=== PATIENT | female | born 1990 | race Caucasian/White ===

== ENCOUNTER 2017-02-03 06:59 | Inpatient (IN) | payer BC ==
--- NOTE | 2017-02-03 19:07 | PCM.LDHP ---
L&D History of Present Illness - General Date of Service: 02/03/17 Admit Problem/Dx: Admission Diagnosis/Problem Admission Diagnosis/Problem 02/03/17 18:54 39-3/7 week intrauterine -increased distance from the hospital- elective induction Source of Information: Patient History Limitations: Reports: No Limitations - History of Present Illness Introduction:: Rae is a 26-year-old 4 para 2011 white female who is due on 02/07/2017 and is admitted for elective induction of labor. She was in [facility], is multiparous and has requested an elective induction of labor. Procedure come risks, benefits, alternatives of care including natural onset of labor all discussed in detail patient. She appears to understand, and wishes to proceed. 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 Her last menstrual period for this was 05/03/2016, was relatively certain, using no control time conception. Cycles were q. 28 days, menarche age 13. Positive test was on 2015. Patient had 2 ultrasounds done on 09/24/2016 into 2016 which both supported her LMP dating. Her past medical history includes the followin. Female infant born 10/10/2011 at 40 weeks gestational age after 23 hours of labor-6 lbs. 9 oz.-epidural was used-delivered at [facility]-child's name is Hi 2. Miscarriage 06/26/2012 at 6 weeks gestational age-passed naturally 3. Male born at 07/08/2014 at 40 weeks gestational age after 13 hours of labor-8 lbs. 2 oz.-normal spontaneous vaginal delivery-epidural was used-[facility] in [place]-child's name is David course was concave by packing, there was an echogenic focus in the left ventricle return remained on followup of ultrasound done 10/28/2016 is felt to be an incidental finding. [employer] test was done on 11/18/2016 and was found to be negative. [place] depression screen score on 09/24/2016 was 0. Patient is desiring an epidural in labor and delivery. Group B strep screen was positive. The patient is allergic to amoxicillin which causes itching and a rash and the bacteria is resistant to clindamycin but sensitive to vancomycin. Vancomycin to be used as prophylactic antibiotic in labor and delivery. Patient is Rh- with a negative blood. RhoGAM was administered on 11/18. course started on 07/23/2016 at 11-4/7 weeks gestational age. Patient had regular visits throughout the course of her . Her vital signs remained stable throughout the course of her . Fundal height growth was appropriate. Her weight gain was from 161.4 pounds at her first visit to 200.2 pounds for approximately a 39 pound weight gain. no problems were encountered. Laboratory testing done during the showed blood which is A- with a negative antibody screen at first visit and again at the end of second trimester. Her first platelet count was 206,000. First hemoglobin was 14.1. She is rubella immune. RPR is nonreactive. HIV and hepatitis B assays were negative. GC and Chlamydia were negative. Her second trimester labs showed a hemoglobin of 13.0 g/dL. Platelets are 191,000. One hour GTT was 96. Group B strep screen was positive, patient's allergic to penicillin, bacteria is resistant to clindamycin but sensitive to vancomycin which will be used for prophylaxis in labor and delivery. Allergies: Amoxicillin which causes itching and rash Medications: 1. vitamins daily Past medical history: 1. Vaginal delivery x2 2. Miscarriage x1 Past surgical history: Apparent 1. Tonsillectomy adenoidectomy 2005 2. Cervical cryotherapy 2006. Family history: Brother with asthma. Mother and father are alive and well. 2 brothers are alive and well otherwise. Maternal grandmother is alive and well with heart valve replacement but has diabetes. Maternal grandfather is secondary to an OR in his 50s. Paternal grandmother is alive but with a stroke history of diabetes history. Paternal grandfather is alive and with history of stroke and Alzheimer's. No bleeding, clotting, and seizure problems noted in the family. Social history: Patient is , lives in [facility]. 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 Does not use any significant loss of alcohol, drugs or tobacco Review of systems: HEENT in-negative Cardiovascular-negative Respiratory-negative Breasts-changes associated with only Gastrointestinal-negative. -changes associated with with normal fundal height growth Musculoskeletal-slight edema occasional in Neurologic-negative Physical exam: In general patient is a well-developed, well-nourished pleasant female of stated age in no acute distress. Last blood pressure on 01/29/2007 she 108/78, weight was 200.2, heart rate was 135. Weight at first there was a 161 point or, height is 5 feet 5 inches. Skin is warm and dry. HEENT, neck and back within normal limits Cardiovascular exam shows regular and rhythm without murmurs. Breast exam is deferred having been done at first visit and found to be negative. Abdomen is protuberant with a fundal height of 38 cm, baby in vertex presentation Last cervical exam showed 2 cm dilation, 90% effacement, soft, -2. Extremities and neurological exam-grossly within normal limits. H&P Review of Systems - Review of Systems: Review Of Systems: See Below L&D Exam - Exam Exam: See Below Problem List Initiated/Reviewed/Updated: Yes Assessment/Plan Comment:: Assessment: 1. 39-3/7 week intrauterine , increased distance from hospital, multiparous status, desire for elective induction of labor 2. Group B strep screen positive-allergic to penicillin-bacteria resistant to clindamycin-sensitive to clindamycin which will be used for prophylaxis 3. Patient plans to bottlefeed 4 Rh- status-Will check baby's blood type upon delivery 5. Epidural when necessary per patient desire Plan: 1. Prophylactic vancomycin antibiotic therapy for group B strep presents 2. Pitocin induction of labor followed by artificial rupture membranes after antibiotics have been started 3. Anticipate normal spontaneous vaginal delivery 4. Epidural when necessary 5. CBC.
[2017-02-03] MEDS ORDERED: Ondansetron 4 MG/2 ML SDV IVPUSH PRN (19:09)
[2017-02-03] MEDS ORDERED: Nalbuphine 20 MG/1 ML Amp IVPUSH PRN (19:09)
[2017-02-03] MEDS ORDERED: Sodium Chloride 0.9% 10 ML Syringe FLUSH PRN (19:09)
[2017-02-03] MEDS ORDERED: Lidocaine 1% 50 ML MDV INJECT ONE (19:09)
[2017-02-03] MEDS ORDERED: Oxytocin/Lactated Ringers 10 UNIT/1,000 ML BAG IV SCH (19:15)
[2017-02-03] MEDS ORDERED: ePHEDrine 50 MG/ML SDV IVPUSH PRN (19:44)
[2017-02-03] MEDS ORDERED: diphenhydrAMINE 50 MG/ML SDV IVPUSH PRN (19:44)
[2017-02-03] MEDS ORDERED: fentaNYL 100 MCG/2 ML SDV EPIDUR PRN (19:44)
[2017-02-03] MEDS ORDERED: Bupivacaine/fentaNYL/NS 100 ML Bag EPIDUR SCH (19:45)
--- NOTE | 2017-02-03 19:56 | PCM.PREANE ---
Preanesthetic Assessment - Anesthesia/Transfusion/Family Hx Anesthesia History: Prior Anesthesia Without Reaction ("did have a sore back") Family History of Anesthesia Reaction: No Transfusion History: No Prior Transfusion(s) - Review of Systems General: No Symptoms Pulmonary: No Symptoms Cardiovascular: No Symptoms Gastrointestinal: No symptoms Neurological: No Symptoms Other: Reports: None - Physical Assessment Pulse: 79 O2 Sat by Pulse Oximetry: 100 Respiratory Rate: 14 Blood Pressure: 115/56 Temperature: 36.9 C Height: 1.68 m Weight: 90.582 kg ASA Class: 2 Mental Status: Alert & Oriented x3 Airway Class: Mallampati = 1 Dentition: Reports: Normal Dentition Thyro-Mental Finger Breadths: 3 Mouth Opening Finger Breadths: 3 ROM/Head Extension: Full Lungs: Clear to auscultation, Normal respiratory effort Cardiovascular: Regular Rate, Regular Rhythm, No Murmurs - Lab Values: Laboratory Last Values WBC 11.38 K/mm3 (3.98-10.04) H 02/03/17 19:25 RBC 4.79 M/mm3 (3.98-5.22) 02/03/17 19:25 Hgb 14.0 gm/L (11.2-15.7) 02/03/17 19:25 Hct 41.2 % (34.1-44.9) 02/03/17 19:25 MCV 86.0 fl (79.4-94.8) 02/03/17 19:25 MCH 29.2 pg (25.6-32.2) 02/03/17 19:25 MCHC 34.0 g/dl (32.2-35.5) 02/03/17 19:25 RDW Std Deviation 42.0 fL (36.4-46.3) 02/03/17 19:25 Plt Count 175 K/mm3 (182-369) L 02/03/17 19:25 MPV 10.4 fl (9.4-12.3) 02/03/17 19:25 Neut % (Auto) 69.9 % (34.0-71.1) 02/03/17 19:25 Lymph % (Auto) 24.3 % (19.3-51.7) 02/03/17 19:25 Price % (Auto) 5.1 % (4.7-12.5) 02/03/17 19:25 Eos % (Auto) 0 (0.7-5.8) L 02/03/17 19:25 Baso % (Auto) 0.1 % (0.1-1.2) 02/03/17 19:25 Neut # (Auto) 7.95 K/mm3 (1.56-6.13) H 02/03/17 19:25 Lymph # (Auto) 2.77 K/mm3 (1.18-3.74) 02/03/17 19:25 Price # (Auto) 0.58 K/mm3 (0.24-0.36) H 02/03/17 19:25 Eos # (Auto) 0.00 K/mm3 (0.04-0.36) L 02/03/17 19:25 Baso # (Auto) 0.01 K/mm3 (0.01-0.08) 02/03/17 19:25 - Allergies Allergies/Adverse Reactions: Allergies Allergy/AdvReac Type Severity Reaction Status Date / Time amoxicillin Allergy Hives Verified 02/03/17 19:39 - Anesthesia Plan Pre-Op Medication Ordered: None - Acknowledgements Anesthesia Type Planned: Epidural Pt an Appropriate Candidate for the Planned Anesthesia: Yes Alternatives and Risks of Anesthesia Discussed w Pt/Guardian: Yes Pt/Guardian Understands and Agrees with Anesthesia Plan: Yes PreAnesthesia Questionnaire - HOME MEDS Home Medications: Home Meds Vit #108/Iron/FA [ One Tablet] 1 each PO DAILY 02/03/17 [ History] - CURRENT (IN HOUSE) MEDS Current Meds: Current Medications Diphenhydramine HCl (Benadryl) 25 mg IVPUSH Q6H PRN PRN Reason: Itching Ephedrine Sulfate (Ephedrine Sulfate) 5 mg IVPUSH ASDIRECTED PRN PRN Reason: HYPOTENTSION Fentanyl (Sublimaze) 100 mcg EPIDUR Q3H PRN PRN Reason: PAIN Fentanyl/Bupivacaine HCl (Fentanyl/Bupivacaine/Ns 2 Mcg-0.125% 100 Ml) 100 ml EPIDUR ASDIRECTED DANIA Lactated Ringer's (Ringers, Lactated) 1,000 mls @ 100 mls/hr IV ASDIRECTED DANIA Oxytocin/Lactated Ringer's (Pitocin In Lr 10 Units/1,000 Ml) 10 unit in 1,000 mls @ 12 mls/hr IV TITRATE DANIA; 2 MUNITS/MIN PRN Reason: Protocol Vancomycin HCl 1 gm/ Sodium (Chloride) 250 mls @ 250 mls/hr IV Q12H DANIA Nalbuphine HCl (Nubain) 10 mg IVPUSH Q2H PRN PRN Reason: Pain (moderate 4-6) Ondansetron HCl (Zofran) 4 mg IVPUSH Q4H PRN PRN Reason: Nausea/Vomiting Sodium Chloride (Saline Flush) 10 ml FLUSH ASDIRECTED PRN PRN Reason: Keep Vein Open Discontinued Medications Lidocaine HCl (Xylocaine 1%) 10 ml INJECT ONETIME ONE Stop: 02/03/17 19:10
[2017-02-03] MEDS: Lactated Ringers 1,000 ML IV SCH (19:59)
[2017-02-04] MEDS: Lactated Ringers 1,000 ML IV SCH (03:30)
--- NOTE | 2017-02-04 07:17 | PCM.SN ---
- Free Text/Narrative Note: Rae is a 26-year-old 4 now para 3013 was admitted at 39-3/7 weeks gestational age yesterday for elective induction of labor for distance from hospital. She lives approximately 2-1/2-3 hours away from the hospital. She is multiparous patient has had relatively fast labors in the past. She is admitted and induced with Pitocin. She had group B strep positive status, his allergic to penicillin, group B strep is daycare assistant to clindamycin therefore was given vancomycin for prophylaxis. She had her first dose approximately 12 hours prior to the baby's delivery. The patient had just had an epidural in place and was not fully effective at the time of delivery. Pitocin was induced induced labor and at approximately 0300 hours on 02/05/2016 patient's membranes were ruptured. She went quickly from 4 cm to complete and delivered at 0659 hours. She delivered a 3370 g (7 pounds, 6.9 ounces) female infant with Apgars of 8 and 9 in an occiput anterior position over an intact perineum. The placenta delivered intact in a Schultze presentation. It appeared intact and complete. The cord had 3 vessels. It was discarded per patient request. No sutures were necessary. The patient had approximately 300 cc of blood loss. Patient plans to nurse. Condition: Good.
--- NOTE | 2017-02-04 16:19 | PCM48HPAN ---
Post Anesthesia Note - EVALUATION WITHIN 48HRS OF ANESTHETIC Vital Signs in Normal Range: Yes Patient Participated in Evaluation: Yes Respiratory Function Stable: Yes Airway Patent: Yes Cardiovascular Function Stable: Yes Hydration Status Stable: Yes Pain Control Satisfactory: Yes Nausea and Vomiting Control Satisfactory: Yes Mental Status Recovered: Yes
[2017-02-04] MEDS ORDERED: Witch Hazel Medicated Pads 100/Jar TOP PRN (20:20)
[2017-02-04] MEDS ORDERED: Acetaminophen 325 MG Tab PO PRN (20:20)
[2017-02-04] MEDS ORDERED: Docusate Sodium 100 MG Cap PO PRN (20:20)
[2017-02-04] MEDS ORDERED: Lanolin 100% Cream 7 GM Tube TOP PRN (20:20)
[2017-02-04] MEDS ORDERED: Benzocaine/Menthol 20%-0.5% Spray 56 GM Canister TOP PRN (20:20)
[2017-02-04] MEDS: Ibuprofen 600 MG Tab PO PRN (20:46)
[2017-02-04] MEDS ORDERED: Bupivacaine 0.25% 10 ML SDV ONE (22:22)
--- NOTE | 2017-02-05 06:48 | PCM.SN ---
- Free Text/Narrative Note: Patient has no complaints this morning. Minimal lochia, patient is bottlefeeding. Afebrile, vital signs stable. Abdomen soft, nontender, uterus at umbilicus. Legs-nontender Assessment/plan: 1. day 1. 2. Group B strep status positive-treated with one dose of vancomycin prior to delivery 3. Patient may be discharged anytime she desires. Waiting for pediatrics to decide whether to keep the baby till tomorrow. 4. Hemoglobin today.
[2017-02-05] MEDS: Ibuprofen 600 MG Tab PO PRN (08:52)
[2017-02-05 08:55] VITALS: BP 128/52
--- NOTE | 2017-02-05 10:18 | PCM.DCSUM1 ---
Discharge Summary - Hospital Course Free Text/Narrative:: Rae is a 26-year-old 4 now para 3013 was admitted at 39-3/7 weeks gestational age yesterday for elective induction of labor for distance from hospital. She lives approximately 2-1/2-3 hours away from the hospital. She is multiparous patient has had relatively fast labors in the past. She is admitted and induced with Pitocin. She had group B strep positive status, his allergic to penicillin, group B strep is scheduling assistant to clindamycin therefore was given vancomycin for prophylaxis. She had her first dose approximately 12 hours prior to the baby's delivery. The patient had just had an epidural in place and was not fully effective at the time of delivery. Pitocin was induced induced labor and at approximately 0300 hours on 02/05/2016 patient's membranes were ruptured. She went quickly from 4 cm to complete and delivered at 0659 hours. She delivered a 3370 g (7 pounds, 6.9 ounces) female infant with Apgars of 8 and 9 in an occiput anterior position over an intact perineum. The placenta delivered intact in a Schultze presentation. It appeared intact and complete. The cord had 3 vessels. It was discarded per patient request. No sutures were necessary. The patient had approximately 300 cc of blood loss. Patient plans to nurse. Condition: Good. recovery normal. - Discharge Data Discharge Date: 02/05/17 Discharge Disposition: DC[facility] Condition: Good - Patient Instructions Diet: Regular Diet as Tolerated Activity: As Tolerated (no intercourse or tampons till vaginal bleeding resolves ) Driving: May Drive Today Showering/Bathing: May Shower (May take a bath) Notify Provider of: Fever, Increased Pain, Swelling and Redness, Nausea and/or Vomiting - Discharge Plan Home Medications: Home Meds Vit #108/Iron/FA [ One Tablet] 1 each PO DAILY 02/03/17 [ History] Ibuprofen [IJD: Ibuprofen] 600 mg PO Q4H PRN #30 tablet 02/05/17 [Rx] Patient Handouts: Home Care Instructions for Mom Referrals: Zen Gilmore MD [Primary Care Provider] - (RTC 6 weeks-TFA) - Discharge Summary/Plan Comment DC Time >30 min.: No Discharge Summary/Plan Comment: 1. Regular diet 2. Routine precautions discussed with the patient 3. Meds per home med list 4. RTC 6 weeks-TFA Dx: 39 week IUP-delivered Cond: good - Patient Data Vitals - Most Recent: Last Vital Signs Temp 36.6 C 02/05/17 08:54 Pulse 88 02/05/17 08:54 Resp 16 02/05/17 08:54 BP 128/52 L 02/05/17 08:54 Pulse Ox 98 02/05/17 08:54 Weight - Most Recent: 90.582 kg I&O - Last 24 hours: Intake & Output 02/04/17 02/05/17 02/05/17 22:59 06:59 14:59 Intake Total 0 Balance 0 Lab Results - Last 24 hrs: Laboratory Results - last 24 hr 02/04/17 02/05/17 Range/Units 10:55 06:08 WBC 9.82 (3.98-10.04) K/mm3 RBC 3.96 L (3.98-5.22) M/mm3 Hgb 11.6 (11.2-15.7) gm/L Hct 35.2 (34.1-44.9) % MCV 88.9 (79.4-94.8) fl MCH 29.3 (25.6-32.2) pg MCHC 33.0 (32.2-35.5) g/dl RDW Std Deviation 43.6 (36.4-46.3) fL Plt Count 165 L (182-369) K/mm3 MPV 10.3 (9.4-12.3) fl Blood Type A NEGATIVE Gel Antibody Screen Negative Screen 0 ros/5 flds - neg RhIG Candidate? Yes Rhogam Indicated Yes, baby rh pos H Med Orders - Current: Current Medications Acetaminophen (Tylenol) 650 mg PO Q4H PRN PRN Reason: mild pain or fever Benzocaine/Menthol (Dermoplast Pain Relief [place]) 0 gm TOP ASDIRECTED PRN PRN Reason: Perineal Comfort Measure Docusate Sodium (Colace) 100 mg PO BID PRN PRN Reason: Constipation Emollient Ointment (Lansinoh Hpa) 0 gm TOP ASDIRECTED PRN PRN Reason: Sore Nipples Ibuprofen (Motrin) 600 mg PO Q4H PRN PRN Reason: Mild pain or fever Last Admin: 02/05/17 08:52 Dose: 600 mg Witch Chapis (Tucks) 1 pad TOP ASDIRECTED PRN PRN Reason: Hemorrhoid pain Discontinued Medications Bupivacaine HCl (Sensorcaine-Mpf 0.25%) 10 ml .ROUTE .STK-MED ONE Stop: 02/04/17 22:23 Diphenhydramine HCl (Benadryl) 25 mg IVPUSH Q6H PRN PRN Reason: Itching Ephedrine Sulfate (Ephedrine Sulfate) 5 mg IVPUSH ASDIRECTED PRN PRN Reason: HYPOTENTSION Fentanyl (Sublimaze) 100 mcg EPIDUR Q3H PRN PRN Reason: PAIN Fentanyl/Bupivacaine HCl (Fentanyl/Bupivacaine/Ns 2 Mcg-0.125% 100 Ml) 100 ml EPIDUR ASDIRECTED DANIA Lactated Ringer's (Ringers, Lactated) 1,000 mls @ 100 mls/hr IV ASDIRECTED DANIA Last Admin: 02/04/17 03:30 Dose: 100 mls/hr Oxytocin/Lactated Ringer's (Pitocin In Lr 10 Units/1,000 Ml) 10 unit in 1,000 mls @ 12 mls/hr IV TITRATE DANIA; 2 MUNITS/MIN PRN Reason: Protocol Last Titration: 02/04/17 06:29 Dose: 8 munits/min, 48 mls/hr Vancomycin HCl 1 gm/ Sodium (Chloride) 250 mls @ 250 mls/hr IV Q12H DANIA Last Admin: 02/04/17 09:51 Dose: Not Given Lidocaine HCl (Xylocaine 1%) 10 ml INJECT ONETIME ONE Stop: 02/03/17 19:10 Last Admin: 02/04/17 09:52 Dose: Not Given Nalbuphine HCl (Nubain) 10 mg IVPUSH Q2H PRN PRN Reason: Pain (moderate 4-6) Ondansetron HCl (Zofran) 4 mg IVPUSH Q4H PRN PRN Reason: Nausea/Vomiting Sodium Chloride (Saline Flush) 10 ml FLUSH ASDIRECTED PRN PRN Reason: Keep Vein Open *Q Meaningful Use (DIS) - VTE *Q VTE Criteria *Q: - Stroke *Q Stroke Criteria *Q: - AMI *Q AMI Criteria *Q:
== END 2017-02-05 10:33 | disposition designated cancer center or children's hospital (05) | DRG 560 ==
LOC: JD.OB 06:59 → OBSVTOIN 02-04 06:59 → JD.OB 02-04 10:05
PROVIDERS: ADMIT Obstetrics & Gynecology; ATTEND Obstetrics & Gynecology
PROC: 10E0XZZ Delivery of Products of Conception, External Approach (ICD-10-PCS; principal; 2017-02-04)
PROC: 3E033VJ Introduction of Other Hormone into Peripheral Vein, Percutaneous Approach (ICD-10-PCS; 2017-02-04)
PROC: 10907ZC Drainage of Amniotic Fluid, Therapeutic from Products of Conception, Via Natural or Artificial Opening (ICD-10-PCS; 2017-02-04)
PROC: 00HU33Z Insertion of Infusion Device into Spinal Canal, Percutaneous Approach (ICD-10-PCS; 2017-02-04)
PROC: 3E0R3CZ (ICD-10-PCS; 2017-02-04)
DX: O99.824 Streptococcus B carrier state complicating childbirth (principal); O69.81X0 Labor and delivery complicated by cord around neck, without compression, not applicable or unspecified; Z3A.40 40 weeks gestation of pregnancy; Z37.0 Single live birth; Z88.0 Allergy status to penicillin
CPT/HCPCS: 01967; 36415; 85025; 85027; 85461; 86850; 86900; 86901; A9270-GY; J2590; J2790; J3370; J7050; J7120

== ENCOUNTER 2020-04-19 12:34 | Inpatient (IN) | payer BC ==
[2020-04-19] MEDS ORDERED: Calcium Carbonate 500 MG Tab.Chew PO PRN (13:20)
[2020-04-19] MEDS ORDERED: Nalbuphine 10 MG/ML Syringe IVPUSH PRN (13:20)
[2020-04-19] MEDS ORDERED: Ondansetron 4 MG/2 ML SDV IVPUSH PRN ×2 (13:20→17:25)
[2020-04-19] MEDS ORDERED: Sodium Chloride 0.9% 10 ML Syringe FLUSH PRN (13:20)
[2020-04-19] MEDS ORDERED: Oxytocin/Lactated Ringers 20 UNIT/1,000 ML BAG ONE (13:29)
[2020-04-19] MEDS ORDERED: Oxytocin/Lactated Ringers 10 UNIT/1,000 ML BAG IV SCH ×2 (13:30)
[2020-04-19] MEDS: Lactated Ringers 1,000 ML IV SCH ×2 (13:36→17:23)
--- NOTE | 2020-04-19 13:45 | PCM.LDHP ---
<LuciusKathy R - Last Filed: 04/19/20 16:49> L&D History of Present Illness - General Date of Service: 04/19/20 Admit Problem/Dx: Admission Diagnosis/Problem Admission Diagnosis/Problem Source of Information: Patient History Limitations: Reports: No Limitations - History of Present Illness Introduction:: Rae is a 29-year-old white female at 39-3/7 weeks' gestational age with an BOB of 04/23/2021 who presents to labor and delivery for induction of labor on the afternoon of 04/19/2020. Cervical examination revealed 2 cm dilated, 80% effacement, -3 station, mid-position. Patient to be started on Pitocin and monitored throughout the day. Group B strep was positive, so antibiotics will also be started. She is allergic to amoxicillin. Sensitivities showed resistance to clindamycin, so vancomycin will be used. heart tones are reassuring. There is moderate variability with good accelerations, no decelerations. Patient experiencing mild contractions every 7-10 minutes. 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 LMP was 07/18/2019. Menses occurred every 28 days, and she was not using control at the time of conception. Gynecologic history includes abnormal Pap in 2006 followed by cryotherapy. Obstetric history includes prior placenta previa that resolved by delivery. 4 previous outcomes: 10/10/2010 - 6 lbs. 9 oz. baby girl named WirtKAYCEE at 40 weeks, 23 hour labor; 06/26/2012 - 6 week gestational age fetus resulted in spontaneous ; 07/08/2013 - 8 lbs. 2 oz baby boy named KAYCEE Hernandez at 40 weeks, 13 hour labor; 02/04/2017 - 7 lbs. 6 oz. baby girl named KAYCEE Arriola at 39-4/7, 12 hour labor. history: LMP was 07/17/2019 with regular cycles. BOB of [birth year]/2020 supported by early ultrasound at 11-4/7 weeks' gestational age on 10/08/2019. Subsequent ultrasounds were ordered to evaluate size of fetus. On 12/13/2019, ultrasound revealed intrauterine growth restriction with growth lagging at 5th percentile. Cervix was adequate at 6.0 cm. Repeat ultrasound on 01/17/2020 continued to show lagging growth at 7th percentile. On 02/15/2020, ultrasound showed a jump in growth to 14th percentile. The last ultrasound was conducted on 04/04/2020 and showed cephalic presentation with growth at the 19th percentile. Weight gain for this increased from 168.0 lbs to 202.0 lbs for a total weight gain of 34.0 lbs. Despite IUGR evidenced by ultrasound, fundal height was fairly consistent with gestational age throughout . She plans to bottle feed after delivery. Risk factors for this : early IUGR, Rh negative mom, GBS positive, long distance from hospital center Labs: Blood type is A negative with negative antibody screen. RhoGAM given on 01/17/2020. Initial labs showed hemoglobin of 13.3 g/dL and platelets of 230,000. Rubella immune. RPR nonreactive. GC negative. Hepatitis B surface antigen and HIV were negative. 1 hour GTT was positive at 141. 3 hour GTT was negative: fasting - 68, 1 hour - 137, 2 hour - 150, 3 hour - 147. Second trimester labs showed hemoglobin of 12.5 g/dL and platelets of 208,000. GBS was positive. Past medical history: 1. Abnormal pap with cryotherapy - 2005 2. Early placenta previa with resolution prior to delivery Past surgical history: 1. Tonsillectomy and adenoidectomy - 2006 Allergies: 1. Amoxicillin - causes rash Current medications: 1. vitamin 1 tab PO daily Family history: Mother and father alive and well. Two brothers, 1 with asthma, otherwise healthy. Maternal grandmother is secondary to heart and liver failure. She also had a history of diabetes. Maternal grandfather is secondary to an MN in his 50's. Paternal grandmother is alive and has a history of cerebrovascular accident. Paternal grandfather is alive and has a history of cerebrovascular disease and Alzheimer's. No family history of bleeeding/blotting disorders, anesthesia-related problems, or problems. Social history: Rae is to Eric Clarke. 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 She and her live in [place], [place]. No tobacco, alcohol, or illicit substance use during . - Related Data Allergies/Adverse Reactions: Allergies Allergy/AdvReac Type Severity Reaction Status Date / Time amoxicillin Allergy Severe Hives Verified 04/19/20 13:20 Home Medications: Home Meds Mv-Mn/Iron/FA/Herbal/Digestive [ One Tablet] 1 each PO DAILY 02/03/17 [History] Past Medical History HEENT History: Reports: None BRAZE OPERATOR History: Reports: , Spontaneous - Past Surgical History HEENT Surgical History: Reports: Tonsillectomy Other HEENT Surgeries/Procedures: 2006 Female Surgical History: Reports: Cervical Cryotherapy Social & Family History - Family History Family Medical History: Noncontributory - Caffeine Use Caffeine Use: Reports: Soda Other Caffeine Use: 1 daily H&P Review of Systems - Review of Systems: Review Of Systems: Comprehensive ROS is negative, except as noted in HPI. L&D Exam - Vital Signs Weight: 91.626 kg - OB Specific Contraction Intensity: Mild Movement: Active Heart Tones: Present Heart Rate (FHR) Variability: Moderate (6-25 bmp) Presentation: Vertex - Prasad Score Prasad Score Cervix Position: Midposition Prasad Score Consistency: Soft Prasad Score Effacement: >80% Prasad Score Dilation: 1-2 cm Prasad Score Infant's Station: -3 Prasad Score Total: 7 - Exam General: Alert, Oriented HEENT: Conjunctiva Clear, EOMI, Mucosa Moist & [place], Posterior Pharynx Clear Neck: Supple, Trachea Midline Lungs: Clear to Auscultation, Normal Respiratory Effort Cardiovascular: Regular Rate, Regular Rhythm GI/Abdominal Exam: Other (Gravid abdomen) Genitourinary: Other Back Exam: Normal Inspection. No: Paraspinal Tenderness Extremities: Normal Inspection, No Pedal Edema, Normal Capillary Refill Skin: Warm, Dry, Intact - Patient Data Result Diagrams: 04/19/20 13:35 Orders Last 24hrs: Active Orders 24 hr Category Date Time Status Activity as Tolerated [RC] PFP Care 04/19/20 13:21 Active Communication Order [RC] ASDIRECTED Care 04/19/20 13:21 Active Heart Tones [RC] ASDIRECTED Care 04/19/20 13:21 Active Notify Provider [RC] PFP Care 04/19/20 13:21 Active Notify Provider [RC] PRN Care 04/19/20 13:21 Active Peripheral IV Care [RC] . DIRECTED Care 04/19/20 13:21 Active Vital Signs [RC] PER UNIT ROUTINE Care 08/05/20 13:21 Active Regular Diet [DIET] Diet 04/19/20 Dinner Active BLOOD BANK HOLD SPECIMEN [BBK] Stat Lab 04/19/20 13:20 Ordered CBC WITH AUTO DIFF [HEME] Stat Lab 04/19/20 13:20 Ordered RAPID PLASMA REAGIN,RPR [CHEM] Stat Lab 04/19/20 13:20 Ordered Calcium Carbonate [Tums] Med 04/19/20 13:20 Ordered 1,000 mg PO Q2H PRN Lactated Ringers [Ringers, Lactated] 1,000 ml Med 04/19/20 13:30 Ordered IV ASDIRECTED Nalbuphine [Nubain] Med 04/19/20 13:20 Ordered 10 mg IVPUSH Q2H PRN Ondansetron [Zofran] Med 04/19/20 13:20 Ordered 4 mg IVPUSH Q4H PRN Oxytocin/Lactated Ringers [Pitocin in LR 10 Units/1,000 Med 04/19/20 13:30 Ordered ML] 10 unit in 1,000 ml IV .CONTINUOUS Oxytocin/Lactated Ringers [Pitocin in LR 10 Units/1,000 Med 04/19/20 13:30 Ordered ML] 10 unit in 1,000 ml IV TITRATE Sodium Chloride 0.9% [Saline Flush] Med 04/19/20 13:20 Ordered 10 ml FLUSH ASDIRECTED PRN Vancomycin [Vancocin] 1 gm Med 04/19/20 21:00 Ordered Sodium Chloride 0.9% [Normal Saline (AdvBag)] 250 ml IV Q12HR Electronic Heart Tones Ext w TOCO [WOMSER] Oth 04/19/20 13:21 Ordered Routine Electronic Heart Tones Internal [WOMSER] Per Unit Oth 04/19/20 13:21 Ordered Routine Peripheral IV Insertion Adult [OM.PC] Routine Oth 04/19/20 13:21 Ordered Resuscitation Status Routine Resus Stat 04/19/20 13:20 Ordered Medication Orders Calcium Carbonate/Glycine (Tums) 1,000 mg PO Q2H PRN PRN Reason: Indigestion Vancomycin HCl 1 gm/ Sodium (Chloride) 250 mls @ 167 mls/hr IV Q12H DANIA Oxytocin/Lactated Ringer's (Pitocin In Lr 10 Units/1,000 Ml) 10 unit in 1,000 mls @ 12 mls/hr IV TITRATE DANIA; Protocol Oxytocin/Lactated Ringer's (Pitocin In Lr 10 Units/1,000 Ml) 10 unit in 1,000 mls @ 100 mls/hr IV .CONTINUOUS DANIA Lactated Ringer's (Ringers, Lactated) 1,000 mls @ 100 mls/hr IV ASDIRECTED DANIA Nalbuphine HCl (Nubain) 10 mg IVPUSH Q2H PRN PRN Reason: Pain Ondansetron HCl (Zofran) 4 mg IVPUSH Q4H PRN PRN Reason: Nausea/Vomiting Sodium Chloride (Saline Flush) 10 ml FLUSH ASDIRECTED PRN PRN Reason: Keep Vein Open Assessment/Plan Comment:: Assessment: 1. Rae is a 29-year-old white female at 39-3/7 weeks' gestational age with an BOB of 04/23/2021 who presents to labor and delivery for induction of labor. 2. Risk factors for : early IUGR, Rh negative mom, GBS positive, long distance from hospital center 3. GBS positive. 4. Rubella immune. 5. RPR nonreactive. 6. Patient desires epidural as labor progresses. Plan: 1. Induction with Pitocin is discussed, including risks and benefits. Patient voices understanding and wishes to proceed. 2. Vancomycin 1 g IV Q12H for GBS positive status. 3. Regular diet. 4. Routine labor care. 5. RPR and CBC upon admission. 5. Epidural if patient so desires. 6. Anticipate normal spontaneous vaginal delivery. <Zen Gilmore F - Last Filed: 04/19/20 18:14> L&D History of Present Illness - General Admit Problem/Dx: Admission Diagnosis/Problem Admission Diagnosis/Problem Normal H&P Review of Systems - Review of Systems: Review Of Systems: See Below L&D Exam - Exam Exam: See Below - Vital Signs Vital Signs: Last Vital Signs Temp 36.6 C 04/19/20 13:21 Pulse 74 04/19/20 13:21 Resp 18 04/19/20 13:21 BP 143/76 H 04/19/20 13:21 Pulse Ox 98 04/19/20 13:21 - Patient Data Lab Results Last 24 hrs: Laboratory Results - last 24 hr 04/19/20 04/19/20 Range/Units 13:35 13:45 WBC 10.26 H (3.98-10.04) K/mm3 RBC 4.48 (3.98-5.22) M/mm3 Hgb 13.1 (11.2-15.7) gm/dl Hct 39.1 (34.1-44.9) % MCV 87.3 D (79.4-94.8) fl MCH 29.2 (25.6-32.2) pg MCHC 33.5 (32.2-35.5) g/dl RDW Std Deviation 43.8 (36.4-46.3) fL Plt Count 185 (182-369) K/mm3 MPV 10.5 (9.4-12.3) fl Neut % (Auto) 68.1 (34.0-71.1) % Lymph % (Auto) 23.8 (19.3-51.7) % [place] % (Auto) 7.7 (4.7-12.5) % Eos % (Auto) 0 L (0.7-5.8) Baso % (Auto) 0.1 (0.1-1.2) % Neut # (Auto) 6.99 H (1.56-6.13) K/mm3 Lymph # (Auto) 2.44 (1.18-3.74) K/mm3 [place] # (Auto) 0.79 H (0.24-0.36) K/mm3 Eos # (Auto) 0.00 L (0.04-0.36) K/mm3 Baso # (Auto) 0.01 (0.01-0.08) K/mm3 COVID-19 (SLICK) Negative (NEGATIVE) Result Diagrams: 04/19/20 13:35 Problem List Initiated/Reviewed/Updated: Yes Orders Last 24hrs: Active Orders 24 hr Category Date Time Status Patient Status Manage Transfer [TRANSFER] Routine ADT 04/19/20 18:00 Ordered Activity as Tolerated [RC] PFP Care 04/19/20 13:21 Active Communication Order [RC] ASDIRECTED Care 04/19/20 13:21 Active Notify Provider [RC] ASDIRECTED Care 04/19/20 17:24 Active Notify Provider [RC] PFP Care 04/19/20 13:21 Active Notify Provider [RC] PRN Care 04/19/20 13:21 Active Oxygen Therapy [RC] ASDIRECTED Care 04/19/20 17:24 Active Peripheral IV Care [RC] . DIRECTED Care 04/19/20 13:21 Active Pulse Oximetry [RC] ASDIRECTED Care 04/19/20 17:24 Active Vital Signs [RC] PER UNIT ROUTINE Care 04/19/20 13:21 Active Regular Diet [DIET] Diet 04/19/20 Dinner Active BLOOD BANK HOLD SPECIMEN [BBK] Stat Lab 04/19/20 13:20 Ordered RAPID PLASMA REAGIN,RPR [CHEM] Stat Lab 04/19/20 13:35 Received Bupivacaine/fentaNYL/NS [fentaNYL/Bupivacaine/NS 2 MCG- Med 04/19/20 17:30 Active 0.125% 100 ML] 100 ml EPIDUR ASDIRECTED Calcium Carbonate [Tums] Med 04/19/20 13:20 Active 1,000 mg PO Q2H PRN Lactated Ringers [Ringers, Lactated] 1,000 ml Med 04/19/20 13:30 Active IV ASDIRECTED Nalbuphine [Nubain] Med 04/19/20 13:20 Active 10 mg IVPUSH Q2H PRN Ondansetron [Zofran] Med 04/19/20 17:25 Active 4 mg IVPUSH ONETIME PRN Ondansetron [Zofran] Med 04/19/20 13:20 Active 4 mg IVPUSH Q4H PRN Oxytocin/Lactated Ringers [Pitocin in LR 10 Units/1,000 Med 04/19/20 13:30 Active ML] 10 unit in 1,000 ml IV .CONTINUOUS Oxytocin/Lactated Ringers [Pitocin in LR 10 Units/1,000 Med 04/19/20 13:30 Active ML] 10 unit in 1,000 ml IV TITRATE Phenylephrine [Sebastian-Synephrine] 1 mg Med 04/19/20 17:30 Active Sodium Chloride 0.9% [Normal Saline] 10 ml IV TITRATE Sodium Chloride 0.9% [Saline Flush] Med 04/19/20 13:20 Active 10 ml FLUSH ASDIRECTED PRN Vancomycin [Vancocin] 1 gm Med 04/19/20 14:00 Active Sodium Chloride 0.9% [Normal Saline (AdvBag)] 250 ml IV Q12H ePHEDrine [ePHEDrine sulfate] Med 04/19/20 17:25 Active 5 mg IVPUSH ASDIRECTED PRN fentaNYL [Sublimaze] Med 04/19/20 17:25 Active 100 mcg EPIDUR Q3H PRN Electronic Heart Tones Ext w TOCO [WOMSER] Oth 04/19/20 13:21 Ordered Routine Electronic Heart Tones Internal [WOMSER] Per Unit Oth 04/19/20 13:21 Ordered Routine Peripheral IV Insertion Adult [OM.PC] Routine Oth 04/19/20 13:21 Ordered Resuscitation Status Routine Resus Stat 04/19/20 13:20 Ordered Medication Orders Calcium Carbonate/Glycine (Tums) 1,000 mg PO Q2H PRN PRN Reason: Indigestion Ephedrine Sulfate (Ephedrine Sulfate) 5 mg IVPUSH ASDIRECTED PRN PRN Reason: Hypotension Fentanyl (Sublimaze) 100 mcg EPIDUR Q3H PRN PRN Reason: Pain Last Admin: 04/19/20 17:29 Dose: 100 mcg Documented by: RAQUEL Fentanyl/Bupivacaine HCl (Fentanyl/Bupivacaine/Ns 2 Mcg-0.125% 100 Ml) 100 ml EPIDUR ASDIRECTED DANIA Vancomycin HCl 1 gm/ Sodium (Chloride) 250 mls @ 167 mls/hr IV Q12H DANIA Last Admin: 04/19/20 13:38 Dose: 167 mls/hr Documented by: RAQUEL Oxytocin/Lactated Ringer's (Pitocin In Lr 10 Units/1,000 Ml) 10 unit in 1,000 mls @ 12 mls/hr IV TITRATE DANIA; Protocol Last Titration: 04/19/20 15:49 Dose: 8 munits/min, 48 mls/hr Documented by: Titration: 04/19/20 15:02 Dose: 6 munits/min, 36 mls/hr Documented by: Titration: 04/19/20 14:30 Dose: 4 munits/min, 24 mls/hr Documented by: Admin: 04/19/20 13:37 Dose: 2 munits/min, 12 mls/hr Documented by: RAQUEL Oxytocin/Lactated Ringer's (Pitocin In Lr 10 Units/1,000 Ml) 10 unit in 1,000 mls @ 100 mls/hr IV .CONTINUOUS DANIA Lactated Ringer's (Ringers, Lactated) 1,000 mls @ 100 mls/hr IV ASDIRECTED DANIA Last Admin: 04/19/20 17:23 Dose: 100 mls/hr Documented by: Infusion: 04/19/20 17:23 Dose: 100 mls/hr Documented by: Admin: 04/19/20 13:36 Dose: 100 mls/hr Documented by: RAQUEL Phenylephrine HCl 1 mg/ Sodium (Chloride) 10.1 mls @ 3,636 mls/hr IV TITRATE DANIA; Protocol Nalbuphine HCl (Nubain) 10 mg IVPUSH Q2H PRN PRN Reason: Pain Ondansetron HCl (Zofran) 4 mg IVPUSH Q4H PRN PRN Reason: Nausea/Vomiting Ondansetron HCl (Zofran) 4 mg IVPUSH ONETIME PRN PRN Reason: Nausea/Vomiting Sodium Chloride (Saline Flush) 10 ml FLUSH ASDIRECTED PRN PRN Reason: Keep Vein Open
[2020-04-19] MEDS ORDERED: ePHEDrine 50 MG/ML SDV IVPUSH PRN (17:25)
[2020-04-19] MEDS ORDERED: fentaNYL 100 MCG/2 ML SDV EPIDUR PRN (17:25)
--- NOTE | 2020-04-19 17:26 | PCM.PREANE ---
Preanesthetic Assessment - Procedure Proposed Procedure: Epidural - Anesthesia/Transfusion/Family Hx Anesthesia History: Prior Anesthesia Without Reaction Family History of Anesthesia Reaction: No Transfusion History: No Prior Transfusion(s) Intubation History: Unknown - Review of Systems General: No Symptoms Pulmonary: No Symptoms Cardiovascular: No Symptoms Gastrointestinal: No Symptoms Neurological: No Symptoms Other: Reports: None - Physical Assessment NPO Status Date: 04/19/20 NPO Status Time: 09:00 Vital Signs: Last Vital Signs Temp 36.6 C 04/19/20 13:21 Pulse 74 04/19/20 13:21 Resp 18 04/19/20 13:21 BP 143/76 H 04/19/20 13:21 Pulse Ox 98 04/19/20 13:21 Height: 1.65 m Weight: 91.626 kg ASA Class: 2 Mental Status: Alert & Oriented x3 Airway Class: Mallampati = 2 Dentition: Reports: Normal Dentition, Caries Thyro-Mental Finger Breadths: 3 Mouth Opening Finger Breadths: 3 ROM/Head Extension: Full Lungs: Clear to Auscultation, Normal Respiratory Effort Cardiovascular: Regular Rate, Regular Rhythm, No Murmurs - Lab Values: Laboratory Last Values WBC 10.26 K/mm3 (3.98-10.04) H 04/19/20 13:35 RBC 4.48 M/mm3 (3.98-5.22) 04/19/20 13:35 Hgb 13.1 gm/dl (11.2-15.7) 04/19/20 13:35 Hct 39.1 % (34.1-44.9) 04/19/20 13:35 MCV 87.3 fl (79.4-94.8) D 04/19/20 13:35 MCH 29.2 pg (25.6-32.2) 04/19/20 13:35 MCHC 33.5 g/dl (32.2-35.5) 04/19/20 13:35 RDW Std Deviation 43.8 fL (36.4-46.3) 04/19/20 13:35 Plt Count 185 K/mm3 (182-369) 04/19/20 13:35 MPV 10.5 fl (9.4-12.3) 04/19/20 13:35 Neut % (Auto) 68.1 % (34.0-71.1) 04/19/20 13:35 Lymph % (Auto) 23.8 % (19.3-51.7) 04/19/20 13:35 [place] % (Auto) 7.7 % (4.7-12.5) 04/19/20 13:35 Eos % (Auto) 0 (0.7-5.8) L 04/19/20 13:35 Baso % (Auto) 0.1 % (0.1-1.2) 04/19/20 13:35 Neut # (Auto) 6.99 K/mm3 (1.56-6.13) H 04/19/20 13:35 Lymph # (Auto) 2.44 K/mm3 (1.18-3.74) 04/19/20 13:35 [place] # (Auto) 0.79 K/mm3 (0.24-0.36) H 04/19/20 13:35 Eos # (Auto) 0.00 K/mm3 (0.04-0.36) L 04/19/20 13:35 Baso # (Auto) 0.01 K/mm3 (0.01-0.08) 04/19/20 13:35 COVID-19 (SLICK) Negative (NEGATIVE) 04/19/20 13:45 Above labs reviewed and noted and within acceptable ranges to proceed with epidural. 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: , 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 - Past Surgical History HEENT Surgical History: Reports: Tonsillectomy Other HEENT Surgeries/Procedures: 2006 Female Surgical History: Reports: Cervical Cryotherapy - SUBSTANCE USE Smoking Status *Q: Never Smoker Tobacco Use Within Last Twelve Months: No Second Hand Smoke Exposure: No Recreational Drug Use History: No - HOME MEDS Home Medications: Home Meds Mv-Mn/Iron/FA/Herbal/Digestive [ One Tablet] 1 each PO DAILY 02/03/17 [History] - CURRENT (IN HOUSE) MEDS Current Meds: Current Medications Calcium Carbonate/Glycine (Tums) 1,000 mg PO Q2H PRN PRN Reason: Indigestion Vancomycin HCl 1 gm/ Sodium (Chloride) 250 mls @ 167 mls/hr IV Q12H DANIA Last Admin: 04/19/20 13:38 Dose: 167 mls/hr Documented by: Oxytocin/Lactated Ringer's (Pitocin In Lr 10 Units/1,000 Ml) 10 unit in 1,000 mls @ 12 mls/hr IV TITRATE DANIA; Protocol Last Titration: 04/19/20 15:49 Dose: 8 munits/min, 48 mls/hr Documented by: Oxytocin/Lactated Ringer's (Pitocin In Lr 10 Units/1,000 Ml) 10 unit in 1,000 mls @ 100 mls/hr IV .CONTINUOUS DANIA Lactated Ringer's (Ringers, Lactated) 1,000 mls @ 100 mls/hr IV ASDIRECTED DANIA Last Admin: 04/19/20 17:23 Dose: 100 mls/hr Documented by: Nalbuphine HCl (Nubain) 10 mg IVPUSH Q2H PRN PRN Reason: Pain Ondansetron HCl (Zofran) 4 mg IVPUSH Q4H PRN PRN Reason: Nausea/Vomiting Sodium Chloride (Saline Flush) 10 ml FLUSH ASDIRECTED PRN PRN Reason: Keep Vein Open Discontinued Medications Oxytocin/Lactated Ringer's (Pitocin In Lr 20 Units/1,000 Ml) Confirm Administered Dose 20 unit in 1,000 mls @ as directed .ROUTE .STK-MED ONE Stop: 04/19/20 13:30
[2020-04-19] MEDS ORDERED: fentaNYL 100 MCG/2 ML SDV ONE (17:28)
[2020-04-19] MEDS ORDERED: Phenylephrine 1 MG in Sodium Chloride 0.9% 10 ML IV SCH (17:30)
[2020-04-19] MEDS ORDERED: Bupivacaine/fentaNYL/NS 100 ML Bag EPIDUR SCH (17:30)
--- NOTE | 2020-04-19 18:12 | PCM.SN.2 ---
- Free Text/Narrative Note: Delivery note: Rae is a 29-year-old white female at 39-3/7 weeks' gestational age with an BOB of 04/23/2021 who presents to labor and delivery for induction of labor on the afternoon of 04/19/2020. Underwent Pitocin induction of labor. Pitocin was started approximately 1315 hrs. on 04/19/2020. The patient progressed rapidly in labor and at 1733 she achieved complete cervical lesion. She pushed approximately 3 contractions and delivered a viable, villegas, female infant with Apgars of 8 and 9, weight of 3120 g (6 pounds 14 ounces), a length of 20.5 inches in a direct occiput anterior position. There was moderate meconium- stained amniotic fluid. heart tones were generally reassuring with some variable decelerations just prior to delivery. She delivered over an intact perineum. Baby was placed on mom's abdomen, cord was clamped x2 and cut by the baby's father Eric. The baby was taken to the warmer for evaluation because of the meconium stained amniotic fluid. Pitocin was creased to 500 cc/h per protocol to facilitate increase in uterine tone and decreased likelihood of bleeding. Cord blood was obtained. The umbilical cord had 3 vessels within it. The placenta delivered in a [place] mentation, appeared intact and complete and was discarded per patient desire. The placenta was stained secondary to meconium. There was approximately 300 cc blood loss. Patient plans to bottle- feed. Condition: Good
[2020-04-19] MEDS ORDERED: Docusate Sodium 100 MG Cap PO PRN (19:09)
[2020-04-19] MEDS ORDERED: Ibuprofen 600 MG Tab PO PRN (19:09)
[2020-04-19] MEDS ORDERED: Acetaminophen 325 MG Tab PO PRN (19:09)
[2020-04-19] MEDS ORDERED: Benzocaine/Menthol 20%-0.5% Spray 56 GM Canister TOP PRN (19:09)
[2020-04-19] MEDS ORDERED: Witch Hazel Medicated Pads 40/Jar TOP PRN (19:09)
--- NOTE | 2020-04-20 06:51 | PCM.DCSUM1 ---
Discharge Summary - Hospital Course Free Text/Narrative:: Rae is a 29-year-old white female at 39-3/7 weeks' gestational age with an BOB of 04/23/2021 who presents to labor and delivery for induction of labor on the afternoon of 04/19/2020. Underwent Pitocin induction of labor. Pitocin was started approximately 1315 hrs. on 04/19/2020. The patient progressed rapidly in labor and at 1733 she achieved complete cervical lesion. She pushed approximately 3 contractions and delivered a viable, villegas, female infant with Apgars of 8 and 9, weight of 3120 g (6 pounds 14 ounces), a length of 20.5 inches in a direct occiput anterior position. There was moderate meconium- stained amniotic fluid. heart tones were generally reassuring with some variable decelerations just prior to delivery. She delivered over an intact perineum. Baby was placed on mom's abdomen, cord was clamped x2 and cut by the baby's father Eric. The baby was taken to the warmer for evaluation because of the meconium stained amniotic fluid. Pitocin was creased to 500 cc/h per protocol to facilitate increase in uterine tone and decreased likelihood of bleeding. Cord blood was obtained. The umbilical cord had 3 vessels within it. The placenta delivered in a Cagle mentation, appeared intact and complete and was discarded per patient desire. The placenta was stained secondary to meconium. There was approximately 300 cc blood loss. Patient plans to bottle- feed. He was noted on exam to have a defect involving the anus in relationship to the perineum and baby was transferred to [facility] in [place], [place]. Patient desiring discharge so she can be with the baby. Condition: Good Diagnosis: Stroke: No - Discharge Data Discharge Date: 04/20/20 Discharge Disposition: Home, Self-Care 01 Condition: Good - Referral to Home Health Primary Care Physician: Zen Gilmore MD - Patient Instructions Diet: Regular Diet as Tolerated Activity: As Tolerated (No intercourse or tampons until bleeding resolves) Driving: May Drive Today Showering/Bathing: May Shower Showering/Bathing, Other: May take a bath Notify Provider of: Fever - Discharge Plan Home Medications: Home Meds Mv-Mn/Iron/FA/Herbal/Digestive [ One Tablet] 1 each PO DAILY 02/03/17 [History] Acetaminophen [Tylenol] 650 mg PO Q4H PRN tablet 04/20/20 [Rx] Ibuprofen [Motrin] 600 mg PO Q4H PRN tablet 04/20/20 [Rx] Referrals: Zen Gilmore MD [Primary Care Provider] - (Return to clinicDr. Gilmore2 to 4 weeks.) - Discharge Summary/Plan Comment DC Time >30 min.: No Discharge Summary/Plan Comment: Discharge instructions: 1. Discharge home 2. Diet, activity and follow-up discussed with patient. 3. Precautions given concern increased pain, bleeding, temperature, signs/symptoms of DVT/PE. 4. Medications per home medication was printed, discussed with and given to the patient. 5. Return to clinic-Dr. Gilmore--Patricia in 2 weeks. Diagnosis: Term -delivered Condition: Good - Patient Data Vitals - Most Recent: Last Vital Signs Temp 36.7 C 04/20/20 02:54 Pulse 68 04/20/20 02:54 Resp 16 04/20/20 02:54 BP 123/66 04/20/20 02:54 Pulse Ox 100 04/20/20 02:54 Weight - Most Recent: 91.626 kg I&O - Last 24 hours: Intake & Output 04/19/20 04/19/20 04/20/20 14:59 22:59 06:59 Intake Total 2700 2 Balance 2700 2 Lab Results - Last 24 hrs: Laboratory Results - last 24 hr 04/19/20 04/19/20 04/19/20 Range/Units 13:35 13:35 13:45 WBC 10.26 H (3.98-10.04) K/mm3 RBC 4.48 (3.98-5.22) M/mm3 Hgb 13.1 (11.2-15.7) gm/dl Hct 39.1 (34.1-44.9) % MCV 87.3 D (79.4-94.8) fl MCH 29.2 (25.6-32.2) pg MCHC 33.5 (32.2-35.5) g/dl RDW Std Deviation 43.8 (36.4-46.3) fL Plt Count 185 (182-369) K/mm3 MPV 10.5 (9.4-12.3) fl Neut % (Auto) 68.1 (34.0-71.1) % Lymph % (Auto) 23.8 (19.3-51.7) % Moca % (Auto) 7.7 (4.7-12.5) % Eos % (Auto) 0 L (0.7-5.8) Baso % (Auto) 0.1 (0.1-1.2) % Neut # (Auto) 6.99 H (1.56-6.13) K/mm3 Lymph # (Auto) 2.44 (1.18-3.74) K/mm3 Moca # (Auto) 0.79 H (0.24-0.36) K/mm3 Eos # (Auto) 0.00 L (0.04-0.36) K/mm3 Baso # (Auto) 0.01 (0.01-0.08) K/mm3 RPR Non-reactive (NONREACTIVE) COVID-19 (SLICK) Negative (NEGATIVE) Blood Type Gel Antibody Screen Screen RhIG Candidate? Rhogam Indicated 04/20/20 Range/Units 01:40 WBC (3.98-10.04) K/mm3 RBC (3.98-5.22) M/mm3 Hgb (11.2-15.7) gm/dl Hct (34.1-44.9) % MCV (79.4-94.8) fl MCH (25.6-32.2) pg MCHC (32.2-35.5) g/dl RDW Std Deviation (36.4-46.3) fL Plt Count (182-369) K/mm3 MPV (9.4-12.3) fl Neut % (Auto) (34.0-71.1) % Lymph % (Auto) (19.3-51.7) % Moca % (Auto) (4.7-12.5) % Eos % (Auto) (0.7-5.8) Baso % (Auto) (0.1-1.2) % Neut # (Auto) (1.56-6.13) K/mm3 Lymph # (Auto) (1.18-3.74) K/mm3 Moca # (Auto) (0.24-0.36) K/mm3 Eos # (Auto) (0.04-0.36) K/mm3 Baso # (Auto) (0.01-0.08) K/mm3 RPR (NONREACTIVE) COVID-19 (SLICK) (NEGATIVE) Blood Type A NEGATIVE Gel Antibody Screen Negative Screen 3 ros/5 flds - neg RhIG Candidate? Yes Rhogam Indicated Yes, baby rh pos H Med Orders - Current: Current Medications Acetaminophen (Tylenol) 650 mg PO Q4H PRN PRN Reason: mild pain or fever Benzocaine/Menthol (Dermoplast Pain Relief Cornelius) 0 gm TOP ASDIRECTED PRN PRN Reason: Perineal Comfort Measure Docusate Sodium (Colace) 100 mg PO BID PRN PRN Reason: Constipation Ibuprofen (Motrin) 600 mg PO Q4H PRN PRN Reason: Mild pain or fever Last Admin: 04/20/20 00:48 Dose: 600 mg Documented by: [place] Multivit/[place]/Iron/Folic Ac ( Plus Iron) 1 each PO DAILY [facility] Everardo Nation (Tucks) 1 pad TOP ASDIRECTED PRN PRN Reason: Perineal Comfort Measure Discontinued Medications Calcium Carbonate/Glycine (Tums) 1,000 mg PO Q2H PRN PRN Reason: Indigestion Ephedrine Sulfate (Ephedrine Sulfate) 5 mg IVPUSH ASDIRECTED PRN PRN Reason: Hypotension Fentanyl (Sublimaze) 100 mcg EPIDUR Q3H PRN PRN Reason: Pain Last Admin: 04/19/20 17:29 Dose: 100 mcg Documented by: Fentanyl (Sublimaze) Confirm Administered Dose 0 mcg .ROUTE .[facility] Stop: 04/19/20 17:29 Fentanyl/Bupivacaine HCl (Fentanyl/Bupivacaine/Ns 2 Mcg-0.125% 100 Ml) 100 ml EPIDUR ASDIRECTED DANIA Vancomycin HCl 1 gm/ Sodium (Chloride) 250 mls @ 167 mls/hr IV Q12H DANIA Last Admin: 04/19/20 13:38 Dose: 167 mls/hr Documented by: Oxytocin/Lactated Ringer's (Pitocin In Lr 10 Units/1,000 Ml) 10 unit in 1,000 mls @ 12 mls/hr IV TITRATE DANIA; Protocol Last Titration: 04/19/20 15:49 Dose: 8 munits/min, 48 mls/hr Documented by: Oxytocin/Lactated Ringer's (Pitocin In Lr 10 Units/1,000 Ml) 10 unit in 1,000 mls @ 100 mls/hr IV .CONTINUOUS DANIA Last Admin: 04/19/20 17:43 Dose: 100 mls/hr Documented by: Lactated Ringer's (Ringers, Lactated) 1,000 mls @ 100 mls/hr IV ASDIRECTED DANIA Last Admin: 04/19/20 17:23 Dose: 100 mls/hr Documented by: Oxytocin/Lactated Ringer's (Pitocin In Lr 20 Units/1,000 Ml) Confirm Administered Dose 20 unit in 1,000 mls @ as directed .ROUTE .[facility] Stop: 04/19/20 13:30 Phenylephrine HCl 1 mg/ Sodium (Chloride) 10.1 mls @ 3,636 mls/hr IV TITRATE DANIA; Protocol Nalbuphine HCl (Nubain) 10 mg IVPUSH Q2H PRN PRN Reason: Pain Ondansetron HCl (Zofran) 4 mg IVPUSH Q4H PRN PRN Reason: Nausea/Vomiting Ondansetron HCl (Zofran) 4 mg IVPUSH ONETIME PRN PRN Reason: Nausea/Vomiting Sodium Chloride (Saline Flush) 10 ml FLUSH ASDIRECTED PRN PRN Reason: Keep Vein Open
[2020-04-20] MEDS ORDERED: Prenatal Multivitamin with Calcium/Folic Acid/Iron Tab PO SCH (09:00)
[2020-04-20 09:13] VITALS: BP 127/68; PULSE 77
== END 2020-04-20 08:20 | disposition home or self-care (01) | DRG 560 ==
LOC: JD.OB 12:34 → JD.OBCHECK 12:34 → JD.OB 13:30 → JD.OBCHECK 17:00 → OBSVTOIN 17:43 → JD.OB 17:44
PROVIDERS: ADMIT Obstetrics & Gynecology; ATTEND Obstetrics & Gynecology
PROC: 10E0XZZ Delivery of Products of Conception, External Approach (ICD-10-PCS; principal; 2020-04-19)
PROC: 10907ZC Drainage of Amniotic Fluid, Therapeutic from Products of Conception, Via Natural or Artificial Opening (ICD-10-PCS; 2020-04-19)
PROC: 3E033VJ Introduction of Other Hormone into Peripheral Vein, Percutaneous Approach (ICD-10-PCS; 2020-04-19)
PROC: 3E0R3BZ Introduction of Anesthetic Agent into Spinal Canal, Percutaneous Approach (ICD-10-PCS; 2020-04-19)
DX: O99.824 Streptococcus B carrier state complicating childbirth (principal); Z3A.39 39 weeks gestation of pregnancy; Z37.0 Single live birth; O77.0 Labor and delivery complicated by meconium in amniotic fluid; O76 Abnormality in fetal heart rate and rhythm complicating labor and delivery; Z11.59 Encounter for screening for other viral diseases
CPT/HCPCS: 36415; 51702; 59025; 59409; 85025; 85461; 86592; 86850; 86900; 86901; A9270-GY; J2590; J2790; J3010; J3370; J7050; J7120; U0002